=== PATIENT | male | born 1970 | race Caucasian/White ===

== ENCOUNTER 2017-09-13 11:38 | Emergency (ER) | payer BC ==
[2017-09-13 11:41] VITALS: BP 139/77; PULSE 102; TEMP 98.3; BMI 31.6
--- NOTE | 2017-09-13 12:23 | PDOC ---
Suture Removal/Wound Check HPI - History of Present Illness Chief Complaint: Suture/Staple Removal(Here) Stated Complaint: SUTURE REMOVAL Time Seen by Provider: 09/13/17 11:45 History Source: Yes: Patient Exam Limitations: Yes: No Limitations Treated at: [facility] Date of Last ED visit: 09/02/17 - Previous ED Treatment Type of procedure performed on last visit: Yes: Laceration Repair Tetanus Immunization: Yes: Up to Date Past History - Past Medical History Allergies/Adverse Reactions: Allergies Allergy/AdvReac Type Severity Reaction Status Date / Time No Known Allergies Allergy Verified 09/13/17 11:41 Home Medications: Ambulatory Orders NK [No Known Home Medication] 08/12/15 COPD: No Thyroid Disease: No - Surgical History Cardiac Surgery: Yes (ANGIOGRAM) - Suicide/Smoking/Psychosocial Hx Smoking History: Never smoked Have you smoked in the past 12 months: No Hx Alcohol Use: Yes (SOCIAL) Drug/Substance Use Hx: No Substance Use Type: None Suture Removal/Wound Check PE - Physical Exam Laceration/Wound Check Symptoms: reports: None Comments: 09/13/17 12:24 left index finger with 4 sutures to be removed CDI well healed no drainage *Review of Systems - Review of Systems Able to Perform ROS?: Yes Constitutional: No: Symptoms Reported HEENTM: No: Symptoms Reported Respiratory: No: Symptoms reported Cardiac (ROS): No: Symptoms Reported ABD/GI: No: Symptoms Reported : No: Symptoms Reported Musculoskeletal: No: Symptoms Reported Integumentary: Yes: Symptoms Reported Medical Decision Making - Medical Decision Making 09/13/17 12:23 cc: suture removal left index finger 4 sutures intact pt has FROM nv intact nv intact FROM 4 sutures removed without incident. 09/13/17 12:25 *DC/Admit/Observation/Transfer Diagnosis at time of Disposition: Visit for suture removal - Discharge Dispostion Disposition: HOME Condition at time of disposition: Good - Referrals Referrals: DESTINY DAN [Primary Care Provider] - - Patient Instructions Printed Discharge Instructions: DI for Suture Removal Additional Instructions: keep clean and dry - Post Discharge Activity
== END 2017-09-13 12:26 | disposition home or self-care (01) ==
LOC: JERFT 11:38
DX: Z48.02 Encounter for removal of sutures (principal)
CPT/HCPCS: 99281-25